=== PATIENT | male | born 1980 | race Caucasian/White ===

== ENCOUNTER 2021-07-14 10:25 | Outpatient (REF) | payer OTHER, SELFPAY ==
--- NOTE | ~2021-07-14 | XR_ITS ---
EXAMINATION: XR ELBOW, RIGHT CLINICAL INFORMATION: Pain. History of fall. COMPARISON: None TECHNIQUE: AP, lateral, and oblique views of the right elbow. FINDINGS: Bone alignment is normal. No definite fracture or dislocation is seen. There is a well-corticated smooth ossification that projects over the medial aspect of the radiohumeral joint questionable for an ossified intra-articular loose body. The joint spaces are otherwise normal. There is no joint effusion. XR/XR elbow RT 2V IMPRESSION: No acute fracture or joint effusion. Well-corticated ossification projecting over the medial aspect of the radial humeral joint questionable for ossified intra-articular loose body.
--- NOTE | ~2021-07-14 | XR_ITS ---
EXAMINATION: XR ANKLE, RIGHT CLINICAL INFORMATION: Pain. Fall. COMPARISON: None TECHNIQUE: AP, lateral, and mortise views of the right ankle. FINDINGS: Bone alignment is normal. No fracture or dislocation is seen. The ankle mortise is normal. There are small calcaneal spurs. Soft tissues are otherwise normal. XR/XR ankle RT min 3V IMPRESSION: No fracture or dislocation.
== END 2021-07-14 10:26 | disposition home or self-care (01) ==
LOC: HO.XRAY 10:25
PROVIDERS: PCP Nurse Practitioner Family; Visit Provider Emergency Medicine
DX: M25.521 Pain in right elbow (principal); M25.571 Pain in right ankle and joints of right foot; Z91.81 History of falling
CPT/HCPCS: 73070; 73610

== ENCOUNTER 2021-10-13 21:26 | Emergency (ER) | payer OTHER, SELFPAY ==
--- NOTE | ~2021-10-13 | XR_ITS ---
EXAMINATION: XR CHEST CLINICAL INFORMATION: Chest pain COMPARISON: None TECHNIQUE: 2 views of the chest were obtained. FINDINGS: Mild right basilar atelectasis or developing infiltrate. Mild cephalization of the vasculature Density in the right upper lung represent a small nodule. Measures 4 mm. The cardiac silhouette is within normal limits. XR/XR chest 2V IMPRESSION: Right basilar opacity may represent a mild area of atelectasis or possible infiltrate. Possible small right upper lobe nodule. [address] to fully evaluate if there are risk factors for lung malignancy
[2021-10-13 21:38] VITALS: BP 157/75; PULSE 83; RESP 20; TEMP 36.8; O2SAT 96; BMI 54.8
--- NOTE | 2021-10-13 22:04 | ED.URI ---
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 Patient does have history of admissions to the hospital but not in the last 10 years. No intubation history. No leg swelling, leg pain, shortness of breath, chest pain, fevers, chills Related Data Previous Rx's Medication Instructions Recorded azithromycin 250 mg tablet See Rx Instructions .ROUTE 10/13/21 .COMPLEX #6 tab benzonatate 200 mg capsule 200 mg PO TID PRN #10 cap 10/13/21 hydrocodone-homatropine 5 mg-1.5 5 ml PO Q4H PRN #30 ml 10/13/21 mg/5 mL (5 mL) oral syrup (Hycodan) prednisone 20 mg tablet 40 mg PO DAILY #10 tab 10/13/21 Allergies Allergy/AdvReac Type Severity Reaction Status Date / Time No Known Allergies Allergy Verified 10/13/21 21:38 [No Known Allergies*] Review of Systems Review of Systems: Yes all other systems are reviewed and are negative Constitutional: Constitutional: Reports no additional constitutional complaints, Denies body ache(s), Denies chills, Denies fever(s), Denies headache(s) and Denies weakness Eyes: Eyes: Reports no additional eye complaints and Denies change in vision ENT: Reports system reviewed and no additional complaints, except as documented, Denies dizziness, Denies headache(s), Reports nasal congestion, Denies nasal discharge, Denies neck pain and Reports sore throat Cardiovascular: Cardiovascular: Reports no additional cardiovascular complaints, Denies chest pain, Denies leg edema and Denies dyspnea Respiratory: Respiratory: Reports no additional respiratory complaints, Reports cough, Denies dyspnea and Reports wheezing Gastrointestinal: Gastrointestinal: Reports no additional gastrointestinal complaints, Denies abdominal pain, Denies diarrhea, Denies nausea and Denies vomiting Genitourinary: Genitourinary: Denies urinary incontinence Musculoskeletal: Musculoskeletal: Reports no additional musculoskeletal complaints, Denies back pain, Denies arthralgias, Denies joint swelling, Denies neck pain, Denies numbness and Denies tingling Integumentary/Breasts: Skin/Breast: Reports system reviewed and no additional complaints, except as docu and Denies rash Neurologic: Denies Abnormal speech present, Denies dizziness, Denies headache(s), Denies numbness, Denies tingling and Denies weakness Allergic/Immunologic: Allergic/Immunologic: Reports wheezing PMFSH Past Medical History Attestation statement: The following information was validated with the patient. Source: old records reviewed and nursing notes reviewed Medical History Asthma Social History Social History Advance Directives: No Advance Directives Information Provided: Yes Physical Exam Vital Signs: Vital Signs: Last Vital Signs Temp 98.3 F 10/13/21 21:38 Pulse 83 10/13/21 21:38 Resp 20 10/13/21 21:38 BP 157/75 H 10/13/21 21:38 Pulse Ox 96 10/13/21 21:38 BMI result Body Mass Index 54.8 Const: General: cooperative, healthy appearing, comfortable and no acute distress Orientation/consciousness: patient oriented x3 Limitations: no limitations HENMT: Head: Yes normal to inspection Ears: hearing grossly normal bilaterally and TM's normal bilaterally General nose exam: Normal external nose present Face and sinus: Yes normal facial exam Mouth: Normal oral and palatal mucosa present Throat: Yes posterior oropharynx normal, Yes tonsils normal and Yes uvula midline Eyes: General: appearance normal, both eyes and all related structures Pupils: Equal, round and reactive pupils present Neck: Neck: Yes normal visual inspection, Yes full ROM, Yes no lymphadenopathy and Yes no meningeal signs Chest: Chest palpation & inspection: normal inspection of the chest Resp: Effort & Inspection: normal respiratory effort Auscultation: clear to auscultation bilaterally Cardio: Rate: regular rate Rhythm: regular rhythm Peripheral pulses: Peripheral pulses 2+ throughout GI: Inspection: Yes normal to inspection Palpation (GI): Soft to palpation and nontender Auscultation: normal bowel sounds Back/Spine/Pelvis: Thoracic/Lumbar Spine: thoracic and lumbar spine normal to inspection Skin: General skin exam: no rashes or lesions noted Neuro: General: patient oriented x3, no meningeal signs, no focal motor deficits and normal sensation to monofilament Cranial nerves: Yes Equal, round and reactive pupils present Cognition (Neuro): normal cognition Speech: No Abnormal speech present Gait exam (Neuro): Normal gait present Motor exam (neuro): 5/5 motor strength present throughout Extrem: General: Yes normal to inspection, Yes no pedal edema and Yes no calf tenderness Course Course Course Narrative: 41-year-old male with history of asthma here with complaints of cough, wheezing, rhinorrhea for several days unrelieved with home albuterol nebulizer. On arrival the patient has stable saturations. His lung sounds are clear. Will check COVID screen, chest x-ray and reassess 2230- COVID screen negative. x-ray shows right lower lobe pneumonia. Patient has no hypoxia, no tachypnea, no fever and is speaking full sentences. Will discharge home with with course of antibiotics, prednisone burst and cough suppressant. Reviewed worrisome signs and symptoms of when to return to the emergency department. Comfortable discharge home. - Of note the patient had incidental finding of a right upper lobe nodule. I did discuss this with the patient and recommend he follow up with outpatient with his primary care doctor for a CT scan of the chest. MDM - URI/Sore Throat Medical Records Attestation: I reviewed the patient's medical records. Lab Data Attestation: I reviewed the patient's lab results. Labs: Lab Results 10/13/21 Range/Units 22:04 COVID-19 ([facility]) Negative (Negative) COVID-19 Clin Com See Note Imaging Data Chest x-ray: Attestation: I personally reviewed and interpreted this imaging study as follows: Radiologist's impression: IMPRESSION: Right basilar opacity may represent a mild area of atelectasis or possible infiltrate.? ? Possible small right upper lobe nodule. [address] to fully evaluate if there are risk factors for lung malignancy Discharge Plan Discharge Clinical Impression: Asthma, Pneumonia Patient Disposition: Home, Self-Care Instructions: Asthma (ED), Community Acquired Pneumonia (ED) Additional Instructions: your COVID test is negative. Chest x-ray shows pneumonia. It also shows a lung nodule. You need to follow up with your PCP for a CT scan of your chest to make sure this is not cancer. increase fluids, rest Alternate Motrin and Tylenol as needed for pain or fever Prescriptions: New azithromycin 250 mg tablet See Rx Instructions .ROUTE .COMPLEX Qty: 6 RF: 0 prednisone 20 mg tablet 40 mg PO DAILY Qty: 10 RF: 0 benzonatate 200 mg capsule 200 mg PO TID PRN (Reason: cough) Qty: 10 RF: 0 hydrocodone-homatropine [Hycodan] 5-1.5 mg/5 mL (5 mL) syrup 5 ml PO Q4H PRN (Reason: cough) Qty: 30 RF: 0 Referrals: Physician,Unknown J [Primary Care Provider] - 2 days Stand Alone Forms: Work/School Release Interventions: ED Discharge Assessment Last Done: 10/13/21 22:50 Discharge Date/Time: 10/13/21 22:53 Print Language: Surinamese
[2021-10-13 22:23] LABS: COVID-19 Test Negative (Negative)
== END 2021-10-13 22:53 | disposition home or self-care (01) ==
PROVIDERS: Nurse Practitioner Family; Emergency Provider Internal Medicine
DX: J18.9 Pneumonia, unspecified organism (principal); J45.909 Unspecified asthma, uncomplicated; Z79.899 Other long term (current) drug therapy; Z20.822 Contact with and (suspected) exposure to COVID-19
CPT/HCPCS: 36415; 71046; 87635; 99283

== ENCOUNTER 2022-06-13 | Outpatient (REF) | payer OTHER, SELFPAY ==
--- NOTE | ~2022-06-13 | CT_ITS ---
EXAMINATION: CT CHEST WITHOUT CONTRAST CLINICAL INFORMATION: Right solitary pulmonary nodule. COMPARISON: None TECHNIQUE: Multidetector volumetric CT imaging of the chest was done. Axial MIP volume rendering provided. Sagittal and coronal reformatted images were obtained. This CT examination was performed using dose optimization techniques as appropriate, variously including the following: *Automated exposure control *Adjustment of mA and/or kV according to patient size (this includes techniques or standardized protocols for targeted exams where dose is matched to indication/reason for exam; i.e. extremities or head) *Use of iterative reconstruction technique DLP: 438 mGy-cm FINDINGS: TEACHING AIDE: Hypoexpanded lungs. LUNGS: The lungs are well expanded and clear of acute pneumonic process. There is a 6 mm calcified nodule right upper lobe axial image 73/9. No additional calcified or noncalcified nodules visualized. There is no acute pneumonic process, ground-glass density or mass. MEDIASTINUM: The thyroid lobes are symmetric and normal. The central trachea and the bronchi are widely patent. The heart size is enlarged. The great vessels are normal caliber. There is no pericardial effusion. The central trachea and the bronchi are widely patent. The thyroid lobes are symmetrical and normal. No abnormal mediastinal or hilar lymphadenopathy seen. PLEURA: There is no pleural effusion or thickening. AXILLA: There is no abnormal axillary lymphadenopathy. The chest wall is unremarkable. UPPER ABDOMEN: The visualized liver, spleen and pancreas appear unremarkable. There is a 2.7 x 2.3 cm right adrenal fatty tumor measuring -56 Hounsfield units. The left adrenal gland appears unremarkable. OSSEOUS STRUCTURES: No aggressive lytic or sclerotic process seen. There is moderate ventral spondylosis mid and lower dorsal spine. CT/CT chest wo con IMPRESSION: 6 mm calcified nodule right upper lobe. No additional nodules seen. No abnormal mediastinal or axillary lymphadenopathy. Mild cardiomegaly. Fleischner guidelines were followed.
== END 2022-06-13 00:01 ==
LOC: HO.CT
PROVIDERS: Visit Provider Registered Nurse
DX: R91.1 Solitary pulmonary nodule (principal)
CPT/HCPCS: 71250

== ENCOUNTER 2023-06-29 08:33 | Outpatient (REF) | payer OTHER, SELFPAY ==
[2023-06-29 11:57] LABS: Estimated Average Glucose 103 mg/dL; Hemoglobin A1c % 5.2 % (<6.0)
[2023-06-29 12:22] LABS: Alanine Aminotransferase 27 U/L (0-40); Albumin Level 4.5 g/dL (3.5-5.0); Alkaline Phosphatase 44 U/L (39-117); Anion Gap 12 (12-20); Aspartate Amino Transferase 20 U/L (5-37); Bilirubin Total 0.6 mg/dL (0.0-1.0); Blood Urea Nitrogen 22 mg/dL (9-16); Calcium 9.7 mg/dL (8.4-10.2); Carbon Dioxide 26 mmol/L (22-29); Chloride 106 mmol/L (96-108); Cholesterol 165 mg/dL (<200); Estimated Glomerular Filt Rate > 60; Glucose Random 88 mg/dL (60-115); HDL Cholesterol 36 mg/dL (>40); LDL Cholesterol Calculated 110 mg/dL (<100); Potassium 4.7 mmol/L (3.3-5.1); Sodium 139 mmol/L (135-145); Total Protein 7.9 g/dL (6.5-8.0); Triglycerides 99 mg/dL (<150)
[2023-06-29 12:25] LABS: TSH reflex Free T4 2.12 uIU/mL (0.32-4.0)
== END 2023-06-29 08:34 | disposition home or self-care (01) ==
LOC: HO.HHCL 08:33
PROVIDERS: Visit Provider Registered Nurse
DX: I10 Essential (primary) hypertension (principal); E66.01 Morbid (severe) obesity due to excess calories; R00.2 Palpitations; Z68.43 Body mass index [BMI] 50.0-59.9, adult
CPT/HCPCS: 36415; 80053; 80061; 83036; 84443

== ENCOUNTER → 2023-07-26 14:45 | Outpatient (REF) | payer OTHER, SELFPAY | LOC: HO.SL 14:45 | PROVIDERS: PCP Nurse Practitioner Family; Visit Provider Registered Nurse | DX: G47.19 Other hypersomnia (principal); R06.83 Snoring | CPT/HCPCS: 95806 ==

== ENCOUNTER → 2023-07-26 19:00 | Outpatient (BNV) | payer OTHER, SELFPAY | PROVIDERS: PCP Nurse Practitioner Family; Visit Provider Internal Medicine | DX: R06.83 Snoring (principal) | CPT/HCPCS: 95806 ==

== ENCOUNTER 2023-08-22 05:44 | Emergency (ER) | payer OTHER, SELFPAY ==
--- NOTE | ~2023-08-22 | XR_ITS ---
EXAMINATION: XR CHEST CLINICAL INFORMATION: Cough COMPARISON: 06/13/2022 TECHNIQUE: 2 views of the chest were obtained. FINDINGS: Lung volumes are symmetric. No focal consolidation is seen. No evidence of pneumothorax, pleural effusion, or pulmonary edema. The cardiomediastinal contour is unremarkable. No acute osseous findings are seen. XR/XR chest 2V IMPRESSION: No acute cardiopulmonary findings.
[2023-08-22 05:53] VITALS: BP 137/87; PULSE 81; RESP 18; O2SAT 97; BMI 52.1
[2023-08-22 06:15] VITALS: PULSE 71; RESP 16; O2SAT 97
[2023-08-22] MEDS: Albuterol/Iprat 2.5/0.5MG 3 ML AMPUL.NEB INHALE (06:15)
--- NOTE | 2023-08-22 06:26 | ECG_ITS ---
Test Reason : SOB Blood Pressure : / mmHG Vent. Rate : 075 BPM Atrial Rate : 075 BPM P-R Int : 184 ms QRS Dur : 090 ms QT Int : 362 ms P-R-T Axes : 040 019 -10 degrees QTc Int : 404 ms Normal sinus rhythm Normal ECG No previous ECGs available Referred By: Rosa Maria Scott Electronically Signed By:ANA KNOTT MD
--- NOTE | 2023-08-22 06:32 | ED_ITS ---
HPI - URI/Sore Throat General Chief Complaint: Upper Respiratory Symptoms Stated Complaint: Asthma Time Seen by Provider: 08/22/23 06:31 Source: patient, RN notes reviewed and old records reviewed Mode of arrival: ambulatory History of Present Illness HPI Narrative: 43-year-old male with a past medical history of asthma presenting to the ED complaining of productive cough, rhinorrhea/congestion, SOB, and chest discomfort when coughing x3 days. Admits using nebulizer at with some relief. Denies fever/chills, pedal edema, calf pain, sick contacts, recent travel or recent steroid use MD elicited complaint: cough and rhinorrhea Related Data Previous Rx's Medication Instructions Recorded azithromycin 250 mg tablet See Rx Instructions PO .COMPLEX #6 10/13/21 tabs benzonatate 200 mg capsule 200 mg PO TID PRN cough #10 caps 10/13/21 hydrocodone-homatropine 5 mg-1.5 5 ml PO Q4H PRN cough #30 mL 10/13/21 mg/5 mL (5 mL) oral syrup (Hycodan) prednisone 20 mg tablet 40 mg (2 x 20 mg) PO DAILY #10 tabs 10/13/21 prednisone 20 mg tablet 40 mg (2 x 20 mg) PO DAILY 4 days 08/22/23 #8 tabs Allergies Allergy/AdvReac Type Severity Reaction Status Date / Time No Known Allergies Allergy Verified 10/13/21 21:38 [No Known Allergies*] Review of Systems Review of Systems: Constitutional: No Fever, No Chills ENT/Mouth: No Ear Pain, + Nasal Congestion, No sore throat, No Rhinorrhea, No Swallowing Difficulty Cardiovascular: +Chest Pain w/cough, + SOB Respiratory: + Cough, No Sputum, No Wheezing Gastrointestinal: No Nausea, No Vomiting, No Diarrhea, No Constipation, No Abdominal pain Musculoskeletal: No joint pain, No Myalgias, No Joint Swelling Skin: No Skin Lesions, No rash Neuro: No Weakness Yes all other systems are reviewed and are negative Constitutional: Constitutional: Reports as per [facility] Past Medical History Attestation statement: The following information was validated with the patient. Source: old records reviewed Medical History Asthma Surgical History No history of previous surgery Family History Family History Other No known problems Social History Social History Household Members: Unknown / Unable to assess Alcohol intake: unknown Patient Tobacco Use Status: Tobacco use Unknown Advance Directives: No Advance Directives Information Provided: Yes Physical Exam Vital Signs: Vital Signs: Last Vital Signs Pulse 71 08/22/23 07:22 Resp 16 08/22/23 07:22 BP 137/87 08/22/23 05:53 Pulse Ox 97 08/22/23 05:53 O2 Del Method Room Air 08/22/23 05:53 BMI result Body Mass Index 52.1 Const: General: cooperative, healthy appearing and no acute distress Orientation/consciousness: patient oriented x3 Limitations: no limitations HEENT: Head: Yes normal to inspection and Yes atraumatic Ears: hearing grossly normal bilaterally General nose exam: Normal external nose present Face and sinus: Yes normal facial exam Eyes: General: appearance normal, both eyes and all related structures EOM: EOMs intact bilaterally Neck: Neck: Yes normal visual inspection and Yes no meningeal signs Resp: Effort & Inspection: normal respiratory effort, not labored and no respiratory distress Auscultation: clear to auscultation bilaterally, no crackles and no wheezes Cardio: Rate: regular rate Heart sounds: S1 normal heart sound present and S2 normal heart sound present Skin: Rashes: no rashes Wounds: no wounds Neuro: General: patient oriented x3, tone normal and no meningeal signs Cranial nerves: Yes CN's II-XII intact bilaterally Gait exam (Neuro): Normal gait present Extrem: General: Yes normal to inspection, Yes no pedal edema and Yes no calf tenderness Course Course Course Narrative: XR chest 2V IMPRESSION: No acute cardiopulmonary findings. -0800--COVID-19 positive -0808--influenza negative Results discussed with patient including worrisome signs and symptoms and strict return precautions, and when to return to the emergency department. They verbalized understanding and feel safe for discharge at this time. Medications Administered Discontinued Medications Generic Name Dose Route Start Last Admin Trade Name Freq PRN Reason Stop Dose Admin Albuterol Sulfate 4 puff 08/22/23 06:54 08/22/23 07:20 Albuterol Sulfate 90 Mcg 8 Gm Inhaler INHALE 08/22/23 06:55 4 puff ONCE ONE Administration Albuterol/Ipratropium 3 ml 08/22/23 06:14 08/22/23 06:15 Albuterol/Iprat 2.5/0.5mg 3 Ml Ampul.Neb INHALE 08/22/23 06:15 3 ml ONCE ONE Administration Prednisone 60 mg 08/22/23 06:02 08/22/23 06:47 Prednisone 20 Mg Tablet PO 08/22/23 06:03 60 mg ONCE ONE Administration Medical Decision Making Medical Decision Making MDM Narrative: 43-year-old male with a past medical history of asthma presenting to the ED complaining of productive cough, rhinorrhea/congestion, SOB, and chest discomfort when coughing x3 days. On exam vital signs stable, NAD, nontoxic appearing, lungs CTA, no appreciable pedal edema or calf tenderness. Concern for asthma exacerbation versus viral illness/bronchitis or pneumonia. Lower suspicion for ACS/PE or dissection Plan: EKG, COVID/flu testing, CXR, DuoNeb, p.o. prednisone, re-evaluate, anticipated discharge. Please refer to course for remaining clinical decision making, interpretation of labs/imaging results, and discussions with consultants and/or family members. Differential Diagnosis Differential Diagnoses: The differential diagnosis associated with the presentation includes As above Admission/Observation Consideration of admission/observation: Escalation of care including admission/observation considered Lab Data MDM Lab Attestation statement: I reviewed the patient's lab results. Labs: Lab Results 08/22/23 Range/Units 07:44 COVID-19 ([facility]) Positive A (Negative) COVID-19 Clin Com See Note Influenza Type A ([facility]) Negative (Negative) Influenza Type B ([facility]) Negative (Negative) Influenza A & B Note See Note Independent Interpretation I performed an independent interpretation of an: EKG (My interpretation EKG is normal sinus rhythm rate of 75. QRS 90. QTC 404. No STEMI.) and Plain X-Ray Radiology Impression Discussion of test interpretation with radiology: I have reviewed the radiologist's reading. Independent Historian Clinical information obtained from an independent historian. History obtained from or confirmed by: Spouse External Record Review External record reviewed: Inpatient record, Office record, Outpatient record, Prior outpatient labs, Prior outpatient radiology, Primary care record and Outside ED record Tests considered The following testing was considered but not selected: As above Chronic Conditions Patient?s care impacted by: Other (asthma) Discharge Plan Discharge Clinical Impression: Asthma, COVID-19 Patient Disposition: Home, Self-Care Instructions: Asthma (DC), COVID-19 (Coronavirus Disease 2019) (ED) Additional Instructions: Your x-ray is unremarkable. You have COVID-19. At this time you will be okay for discharge. Please self isolate for 5 days. Do not expose yourself to others. You may not go to work or school. Please continue to follow cold instructions and wash your hands frequently. You may take Tylenol / Motrin as directed on the bottle for pain or fever. If you have constant or persistent shortness of breath, fever unresolved with medications, chest pain, or your unable to eat or drink please return to the ED CDC Guidelines for home isolation: - Stay away from others - WEAR A MASK if you are sick AND STAY HOME - Cover your mouth and nose with a tissue when you cough or sneeze. Dispose of tissues in a lined trash can and wash your hands immediately with soap and water for at least 20 seconds. If soap and water are not available, clean hands with alcohol-based hand test eng that contains at least 60% alcohol. - Clean your hands often with soap and water for at least 20 seconds - Avoid touching your eyes, nose and mouth with unwashed hands - Do not share dishes, drinking glasses, cups, eating utensils, towels, or bedding with other people in your home. After using these items, wash them thoroughly with soap and water or put in the stencil printer. - Clean high-touch surfaces in your isolation area ( sick room and bathroom) every day; let a caregiver clean and disinfect high-touch surfaces in other areas of the home. Clean the area or item with soap and water or another detergent if it is dirty. Then, use a household disinfectant. - Limit contact with pets and animals: If you must care for a pet, wash your hands before and after interacting with them) Jones radiograf?a no tiene nada especial. Tienes COVID-19. En nina momento usted estar? wally para recibir el indira. Por favor, a?slese laurel 5 d?as. No te expongas a los dem?s. No puede ir al trabajo ni a la escuela. Contin?e siguiendo las instrucciones fr?as y l?vese las pelon con frecuencia. Puede katie Tylenol/Motrin olive se indica en el frasco para el dolor o la fiebre. Si tiene dificultad para respirar lilian o persistente, fiebre que no se resuelve con medicamentos, dolor en el pecho o no puede comer ni beber, regrese al servicio de urgencias. Pautas de los CDC para el aislamiento en el hogar: - Mant?ngase alejado de los dem?s - [place] si est?s enfermo Y QU?DATE EN CASA - Cubrirse la boca y la nariz con un pa?uelo desechable al toser o estornudar. Deseche los pa?uelos en un bote de basura forrado y l?vese las pelon inmediatamente con agua y jab?n laurel al menos 20 segundos. Si no hay agua y jab?n disponibles, l?vese las peoln con un desinfectante para pelon a base de alcohol que contenga al menos un 60 % de alcohol. - L?vate las pelon frecuentemente con agua y jab?n laurel al menos 20 segundos. - Evite tocarse los ojos, la nariz y la boca con las pelon sucias. - No comparta platos, vasos, tazas, utensilios para comer, toallas o ropa de cama con otras personas en ojnes hogar. Despu?s de usar estos art?culos, l?velos minuciosamente con agua y jab?n o p?ngalos en el lavavajillas. - Limpiar las superficies de alto contacto en jones ?poppy de aislamiento ( cuarto de enfermo y ba?o) todos los d?as; Deje que un cuidador limpie y desinfecte las superficies de alto contacto en otras ?reas del hogar. Limpie el ?poppy o art?culo con agua y jab?n u otro detergente si est? sucio. Luego, use un desinfectante dom?stico. - Limitar el contacto con mascotas y animales: Si debes cuidar mehdi mascota, l?vate las pelon antes y despu?s de interactuar con laxmi) Prescriptions: New prednisone 20 mg tablet 40 mg PO DAILY 4 Days Qty: 8 0RF No Action azithromycin 250 mg tablet See Rx Instructions .ROUTE .COMPLEX Qty: 6 0RF Rx Instructions: For 250 mg dose pack: take 500 mg today (day 1), then 250 mg for 4 days (days 2-5) prednisone 20 mg tablet 40 mg PO DAILY Qty: 10 0RF benzonatate 200 mg capsule 200 mg PO TID PRN (Reason: cough) Qty: 10 0RF hydrocodone-homatropine [Hycodan] 5-1.5 mg/5 mL (5 mL) syrup 5 ml PO Q4H PRN (Reason: cough) Qty: 30 0RF Referrals: Physician,Unknown J [Primary Care Provider] - 3 days Print Language: Grenadian
[2023-08-22] MEDS: predniSONE 20 MG TABLET 60 MG PO (06:47)
[2023-08-22] MEDS: Albuterol Sulfate 90 MCG 8 GM INHALER 4 PUFF INHALE (07:20)
[2023-08-22 07:22] VITALS: PULSE 71; RESP 16; O2SAT 97
[2023-08-22 07:57] LABS: IDNOW Serial# BCCEAD1C
[2023-08-22 07:58] LABS: COVID-19 Test Positive (Negative)
[2023-08-22 08:05] LABS: IDNOW Serial# 08D9AD1C; Influenza A Negative (Negative); Influenza B2 Negative (Negative)
[2023-08-22 08:30] VITALS: PULSE 76; RESP 17
== END 2023-08-22 08:33 | disposition home or self-care (01) ==
PROVIDERS: Emergency Medicine; Emergency Provider Emergency Medicine Emergency Medical Services
DX: U07.1 COVID-19 (principal)
CPT/HCPCS: 71046; 87502; 87635; 93005; 94640; 99284; 99285

== ENCOUNTER 2023-09-06 10:40 | Outpatient (AMB) | payer OTHER, SELFPAY ==
[2023-09-06 10:44] VITALS: BP 126/74; PULSE 64; BMI 52.4
--- NOTE | 2023-09-06 10:44 | MHC.OFFVIS ---
Intake Vital Signs 09/06/23 10:44 Height 5 ft 9 in Weight 354 lb 15.108 oz BMI 52.4 BP 126/74 Blood Pressure Location Lt brachial Position Sitting Pulse 64 Intake Visit Reasons: NPV/Palpitations/HTN/Abnormal ECG/HHC/F. Brittney Intake Note: NPV Hydraulic Miner Required: Yes Hydraulic Miner Language: Glass Loading Equipment Tender Name: Leyla [id number] Accompanied by: Self / Same As Patient Allergies No Known Allergies [No Known Allergies*] Allergy (Verified 09/06/23 10:46) Medication List - Last Reconciled 09/06/23 by Frankie Baez MD benzonatate 200 mg PO TID PRN olmesartan 20 mg PO DAILY HPI HPI Comments History of Present Illness Details Mehdi has been referred for cardiac evaluation. Note from primary care physician states heart racing symptoms, but patient states he does not have any such sensation. According to him, he does get short of breath with activity. It started about an year or so ago after got diagnosed with COVID and has been progressive since that time. He also carries a diagnosis of asthma. He is markedly overweight. Otherwise, no clear anginal-type chest pains. No known cardiac issues like coronary disease or myocardial infarction or cardiomyopathy. Per history, patient's brother in his 30s from cardiac issues but unknown details. [facility] Medical History (Updated 09/06/23 @ 10:53 by Frankie Baez MD) Morbid obesity Asthma Surgical History No history of previous surgery Family History Other No known problems Social History Household Members: Unknown / Unable to assess Alcohol intake: unknown Patient Tobacco Use Status: Tobacco use Unknown Review of Systems Const Denies chills, Denies daytime sleepiness, Denies fatigue, Denies fever(s), Denies frequent falls, Denies night sweats, Denies snoring, Denies weakness, Denies weight gain and Denies weight loss Eyes Denies loss of vision ENT Denies dizziness and Denies hearing loss Card Denies chest pain, Denies chest pain with activity, Denies syncope, Denies rapid heart rate, Denies edema, Denies claudication, Denies leg edema, Denies lightheadedness, Denies palpitations, Denies dyspnea, Denies dyspnea on exertion and Denies orthopnea Resp Denies cough, Denies excessive phlegm production, Denies dyspnea, Denies dyspnea on exertion, Denies snoring and Denies wheezing GI Denies abdominal pain, Denies hematochezia, Denies change in bowel habits, Denies change in stool character, Denies heartburn, Denies nausea and Denies vomiting Denies hematuria, Denies dysuria and Denies urinary frequency Musc Denies arthralgias, Denies muscle weakness, Denies numbness and Denies tingling Skin/Breast Denies nail changes and Denies rash Neuro Denies Abnormal speech present, Denies dizziness, Denies syncope, Denies frequent falls, Denies loss of vision, Denies memory loss, Denies numbness, Denies tingling and Denies weakness Psych Denies depression and Denies memory loss Endo Denies fatigue and Denies palpitations Aller/Immun Denies wheezing Physical Exam Vital Signs: Last Vital Signs Pulse 64 09/06/23 10:44 BP 126/74 09/06/23 10:44 BMI result Body Mass Index 52.4 Const General: comfortable and no acute distress Orientation/consciousness: patient oriented x3 HEENT Other: Unremarkable Head: Yes normal to inspection Neck Neck: Yes normal visual inspection Chest Chest palpation & inspection: normal inspection of the chest Resp Auscultation: clear to auscultation bilaterally Cardio Palpation: normal PMI Heart sounds: S1 normal heart sound present, S2 normal heart sound present, no gallops, no murmurs and no rubs GI Palpation (GI): Soft to palpation Back/Spine/Pelvis Other: unremarkable Skin General skin exam: no rashes or lesions noted Neuro General: patient oriented x3 Speech: No Abnormal speech present Extrem General: Yes normal to inspection Psych Mental Status: mental status grossly normal Assessment & Plan Assessment & Plan (1) Shortness of breath: Code(s): R06.02 - Shortness of breath (2) Morbid obesity: Code(s): E66.01 - Morbid (severe) obesity due to excess calories Plan In the recent EKG, underlying rhythm is sinus at 75/Min; no significant ST-T changes and otherwise unremarkable. Normal [place] and corrected QT. Overall, morbid obesity, shortness of breath with activity, family history of myocardial infarction in brother in his 30s with . Will start with an echocardiogram and stress myocardial perfusion imaging study. If there is issue with image quality due to weight, then consider coronary CTA. Follow-up after testing. Orders: Orders CA echo transthoracic complete Today R06.02 - Shortness of breath CA stress test Today R06.02 - Shortness of breath NM cardiolite stress test Today R06.02 - Shortness of breath, R07.2 - Precordial pain Medications: Changed From benzonatate 200 mg PO TID PRN 10 caps 0RF cough To benzonatate 200 mg PO TID PRN cough Coding Level of Care Code New Pt Level 4 (18148) Diagnoses Shortness of breath R06.02 Morbid obesity E66.01
== END 2023-09-06 11:08 | disposition home or self-care (01) ==
PROVIDERS: PCP Nurse Practitioner Family; Visit Provider Internal Medicine
DX: R06.02 Shortness of breath (principal); E66.01 Morbid (severe) obesity due to excess calories
CPT/HCPCS: 99204

== ENCOUNTER → 2023-09-06 10:40 | Outpatient (BNVA) | payer OTHER, SELFPAY | PROVIDERS: PCP Nurse Practitioner Family; Visit Provider Internal Medicine ==

== ENCOUNTER 2025-01-28 05:59 | Outpatient (REF) | payer OTHER, SELFPAY ==
--- OUTSIDE RECORDS SUMMARY | 2025-01-28 06:02 | XMS_ITS | Encounter Summary ---
Author Organization [employer] Address [address] [facility] 7[address] [place] [address] Care Team Providers Care Supervisor International Reservations Name Role Phone Bernice Lugo [facility] Primary Care Provider [phone] Reason for Visit * Reason Onset Date Comments Med Refill 03/22/2023 Encounter Details Date Type Department Care Team ([facility] st Contact Info) Description 03/22/2023 Telephone [facility] [address] [place] [address] Bernice Lugo [facility] [address] [place] [address] Med Refill Social History Tobacco Use Types Packs/Day Years Used Date Smoking Tobacco: Never Assessed Sex and Gender Information Value Date Recorded Sex Assigned at Male 09/05/2022 10:34 AM EDT Legal Sex Male 10:34 AM EDT Gender Identity Choose not to disclose 10:34 AM EDT Sexual Orientation Choose not to disclose 2021 10:34 AM EDT documented as of this encounter Miscellaneous Notes * Telephone Encounter - Adela Cifuentes LPN - 03/22/2023 11:22 AM EDT Duplicate pended to PCP. * Telephone Encounter - Kira Zepeda - 03/22/2023 9:14 AM EDT Tc from patient requesting a med refill on medication allopurinol [address] Lugo documented in this encounter Plan of Treatment Upcoming Encounters Date Type Department Care Team (Late st Contact Info) Description 03/24/2025 2:00 PM EDT Office Visit [facility] [address] [place] [address] Bernice Lugo FNP [address] [place] [address] documented as of this encounter Visit Diagnoses Not on filedocumented in this encounter Care Teams Supervisor International Reservations Relationship Specialty Start Date End Date Bernice Lugo FNP [address] [place] [address] PCP - General Family Medicine 04/19/22 documented as of this encounter
--- OUTSIDE RECORDS SUMMARY | 2025-01-28 06:02 | XMS_ITS | Encounter Summary ---
Author Organization [employer] Address [address] [facility] [address] [place] [address] Care Team Providers Care Naturopath Name Role Phone Bernice Lugo Primary Care Provider [phone] Reason for Referral * Imaging (Routine) - Authorized Specialty Diagnoses / Procedures Referred By Miguel Angel jonas Referred To Contact Radiology Diagnoses Adrenal incidentaloma (CMS/HCC) Procedures CT adrenal wo/w IV con Bernice Lugo [employer] [address] [place] [address] Phone: tel: fax: [address] Phone: tel: fax: Referral ID Status Reason Start Date Expiration Date V isits Requested Visits Authorized [id number] Authorized 01/05/2025 01/05/2026 1 1 * Imaging (Routine) - Authorized Specialty Diagnoses / Procedures Referred By Miguel Angel jonas Referred To Contact Radiology Diagnoses Lung nodule, solitary Procedures CT Chest w/o Contrast Bernice Lugo FNP [address] [place] [address] Phone: tel: fax: [address] Phone: tel: fax: Referral ID Status Reason Start Date Expiration Date V isits Requested Visits Authorized [id number] Authorized 01/05/2025 01/05/2026 1 1 Reason for Visit * Reason Comments Follow-up Encounter Details Date Type Department Care Team (Latest Contact Info) Description 01/03/2025 2:30 PM EST Office Visit [facility] [address] [place], [place] [id number] Bernice Lugo [employer] [address] [place] [address] Essential hypertension (Primary Dx); Acute idiopathic gout of left foot; Lung nodule, solitary; Adrenal incidentaloma (CMS/HCC); Class 3 severe obesity due to excess calories with serious comorbidity and body mass index (BMI) of 50.0 to 59.9 in adult (CMS/HCC); Dietary counseling; Exercise counseling; Family history of prostate cancer Social History Tobacco Use Types Packs/Day Years Used Date Smoking Tobacco: Never Smokeless Tobacco: Never Tobacco Cessation:Counseling Given: Not Answered Alcohol Use Standard Drinks/Week Comments Never 0 (1 standard drink = 0.6 oz pur e alcohol) Depression Answer Date Recorded Patient Health Questionnaire-9 Score 0 01/03/2025 Patient Health Questionnaire-9 Score 0 01/03/2025 Last PHQ-9: Questionnaire Data Not on file 0 01/03/2025 Housing Stability Answer Date Recorded What is your housing situation today? I have rosy antoine 01/03/[address] you li ve. Do you have problems with any of the following? None of the above 01/03/2025 Food Insecurity Answer Date Recorded Within the past 12 months, y ou worried that your food would run out before you got money to buy more: Never True 01/03/2025 Within the past 12 months,th e food you bought just didn't last and you didn't have enough money to get more: Never True Transportation Answer Date Recorded In the past 12 months, has l ack of transportation kept you from medical appts, meetings, work or from getting things needed for daily living? No 01/03/2025 Utilities Answer Date Recorded In the past 12 months, has t he electric, gas, oil or water company threatened to shut off services in your home? No 01/03/2025 Depression Answer Date Recorded Patient Health Questionnaire-2 Score 0 01/03/2025 Internet Access Answer Date Recorded Internet Access Q1 Yes 01/03/2025 Internet Access Q2 Not on file 01/03/2025 Sex and Gender Information Value Date Recorded Sex Assigned at Male 09/05/2022 10:34 AM EDT Legal Sex Male 10:34 AM EDT Gender Identity Choose not to disclose 10:34 AM EDT Sexual Orientation Choose not to disclose 2021 10:34 AM EDT documented as of this encounter Last Filed Vital Signs Vital Sign Reading Time Taken Comments Blood Pressure 140/90 01/03/2025 3:01 PM EST Pulse 77 01/03/2025 2:35 PM EST Temperature 36.2 ??C (97.2 ??F) 01/03/2025 2:35 PM ES T Respiratory Rate 20 01/03/2025 2:35 PM EST Oxygen Saturation 98% 01/03/2025 2:35 PM EST Inhaled Oxygen Concentration - - Weight 162 kg (357 lb 6.4 oz) 01/03/2025 2:35 PM EST Height 175.3 cm (5' 9 ) 01/03/2025 2:35 PM EST Body Mass Index 52.78 01/03/2025 2:35 PM EST documented in this encounter Progress Notes * [facility], [employer] - 01/03/2025 2:30 PM EST SUBJECTIVE: Mehdi Vicente is a 45 y.o. year old adult with HTN, HLD, gout, who presents for chronic disease management and to reestablish care. Last PCP visit 2022. Acute Concerns: Gout flare x 1 day left ankle. No longer taking allopurinol. Requesting indomethacin which was previously effective. Interval History HTN-stopped BP medications x 6 months (ran out); amlodipine; olmesartan. Pt denies CP/SOB/headache/blurred vision Brother from prostate cancer, patient requesting early screening Social History Social History Narrative Tobacco Use: None ETOH: None Marijuana Use: None Other substance use: None Current living environment: Children: 2 adult children (daughter in [place]) Employment/education: Works at [employer] Sexually active: yes Partners are: AFAB Patient Active Problem List Diagnosis Articular gout Dyslipidemia Essential hypertension Lung nodule Vitamin D deficiency Class 3 severe obesity due to excess calories with serious comorbidity and body mass index (BMI) of50.0 to 59.9 in adult ([facility]) No past surgical history on file. Family History Problem Relation Name Age of Onset Prostate cancer Brother Heart attack Brother Review of Systems Constitutional: Negative for activity change, diaphoresis, fatigue, fever and unexpected weight change. Eyes: Negative for visual disturbance. Respiratory: Negative for apnea, cough, chest tightness and shortness of breath. Cardiovascular: Negative for chest pain, palpitations and leg swelling. Gastrointestinal: Negative for abdominal pain and nausea. Musculoskeletal: Positive for arthralgias. Neurological: Negative for dizziness, syncope, light-headedness and headaches. OBJECTIVE: Vitals: 01/03/25 1435 BP: (!) 158/90 Pulse: 77 Resp: 20 Temp: 97.2 ??F (36.2 ??C) SpO2: 98% Physical Exam Constitutional: Appearance: Normal appearance. HENT: Head: Normocephalic. Right Ear: External ear normal. Left Ear: External ear normal. Nose: Nose normal. Eyes: Conjunctiva/sclera: Conjunctivae normal. Cardiovascular: Rate and Rhythm: Normal rate and regular rhythm. Heart sounds: Normal heart sounds. Pulmonary: Effort: Pulmonary effort is normal. Breath sounds: Normal breath sounds. Musculoskeletal: Right lower leg: No edema. Left lower leg: No edema. Right ankle: Normal. Left ankle: Swelling present. Tenderness present over the lateral malleolus. No medial malleolus tenderness. Skin: General: Skin is warm and dry. Capillary Refill: Capillary refill takes less than 2 seconds. Neurological: General: No focal deficit present. Mental Status: Mehdi is alert and oriented to person, place, and time. Psychiatric: Mood and Affect: Mood normal. Behavior: Behavior normal. ASSESSMENT/PLAN HTN -Restart olmesartan 20 mg daily -Update labs -Negative sleep study 2021 - Reviewed ED precautions to include chest pain, shortness of breath, severe headache, sudden vision changes or BP >=180/>=120 mmHg. Contact HC if three or more BP readings >140/90. - Encouraged regular aerobic exercise within initial goal of 30 minute walk 3x/week - Encouraged balanced diet with a variety of fruits, vegetables, and lean meats. Gout -Acute flare, left ankle over lateral malleolus -Start indomethacin 50 mg twice daily which has previously been effective for patient's flares - Check uric acid levels once flare subsides with plan to restart allopurinol -Will obtain x-ray of affected joint Lung Nodule - Incidental finding of lung nodule on x-ray - Had follow-up chest CT 06/2022 which showed a 6 mm solid nodule in right upper lobe. No follow-upsince -Will obtain follow-up chest CT per Fleischner guidelines Adrenal Mass -Incidental finding on [address] of 2.7 x 2.3 cm right adrenal fatty tumor measuring -56 Hounsfield units -Will obtain adrenal imaging to follow-up, pending results consider endocrinology referral. Diagnosis Plan 1. Essential hypertension olmesartan (Benicar) 20 MG tablet Comprehensive Metabolic Panel Lipid Panel, Standard Comprehensive Metabolic Panel Lipid Panel, Standard 2. Acute idiopathic gout of left foot indomethacin (Indocin) 50 MG capsule XR Ankle 3+ Views Left XR Ankle 3+ Views Left 3. Lung nodule, solitary CT Chest w/o Contrast CT Chest w/o Contrast 4. Adrenal incidentaloma (CMS/HCC) CT adrenal wo/w IV con CT adrenal wo/w IV con 5. Class 3 severe obesity due to excess calories with serious comorbidity and body mass index (BMI)of 50.0 to 59.9 in adult (CMS/HCC) Hemoglobin A1c Hemoglobin A1c 6. Dietary counseling 7. Exercise counseling Follow Up: 3 months, PE; sooner pending lab results Current Outpatient Medications on File Prior to Visit Medication Sig Dispense Refill albuterol 108 (90 Base) MCG/ACT inhaler Inhale 2 puffs every 4 (four) hours. allopurinol (Zyloprim) 300 MG tablet take 1 tablet by oral route every day. Take with 100 mg pill (total of 400 mg) amLODIPine (Norvasc) 5 MG tablet Take 1 tablet (5 mg) by mouth in the morning. 30 tablet 11 indomethacin (Indocin) 50 MG capsule TAKE 1 CAPSULE BY MOUTH TWICE DAILY NEEDED FOR GOUT 28 capsule 1 olmesartan (BENIcar) 20 MG tablet TAKE 1 TABLET BY MOUTH EVERY DAY 90 tablet 0 No current facility-administered medications on file prior to visit. Georgian Translation: Provided by [facility] staff member JENA Brewster documented in this encounter Plan of Treatment Upcoming Encounters Date Type Department Care Team (Late st Contact Info) Description 03/24/2025 2:00 PM EDT Office Visit [facility] [address] [place] [address] Bernice Lugo FNP [address] [place] [address] Scheduled Orders Name Type Priority Associated Diagnoses Orde r Schedule XR Ankle 3+ Views Left Imaging Routine Acute idiopathic gout of left foot Expected: 01/03/2025, Expires: 01/03/2026 CT Chest w/o Contrast Imaging Routine Lung nodule, solitary Expected: 01/05/2025, Expires: 01/05/2026 CT adrenal wo/w IV con Imaging Routine Adrenal incidentaloma (CMS/HCC) Expected: 01/05/2025, Expires: 01/05/2026 Comprehensive Metabolic Panel Lab Routine Essential hypertension Expected: 01/05/2025 (Approximate), Expires: 01/05/2026 Lipid Panel, Standard Lab Routine Essential hypertension Expected: 01/05/2025 (Approximate), Expires: 01/05/2026 Hemoglobin A1c Lab Routine Class 3 severe obesity due to excess calories with serious comorbidity and body mass index (BMI) of 50.0 to 59.9 in adult (CMS/HCC) Expected: 01/05/2025 (Approximate), Expires: 01/05/2026 PSA,Total Lab Routine Family history of prostate cancer Expected: 01/05/2025, Expires: 01/05/2026 documented as of this encounter Visit Diagnoses Diagnosis Essential hypertension- Primary Unspecified essential hypertension Acute idiopathic gout of left foot Lung nodule, solitary Adrenal incidentaloma (CMS/HCC) Class 3 severe obesity due to excess calories with serious comorbidity and body mass index (BMI) of 50.0 to 59.9 in adult (CMS/HCC) Dietary counseling Dietary surveillance and counseling Exercise counseling Family history of prostate cancer Family history of malignant neoplasm of prostate documented in this encounter Additional Health Concerns Assessment Noted Time PHQ-9 Depression Total Score: 0 01/03/20 25 2:41 PM EST documented as of this encounter Care Teams Naturopath Relationship Specialty Start Date End Date Bernice Lugo [employer] [address] [place] [address] PCP - General Family Medicine 04/19/22 documented as of this encounter
--- OUTSIDE RECORDS SUMMARY | 2025-01-28 06:02 | XMS_ITS | Encounter Summary ---
Author Organization [employer] Address [address] [facility] [address] [place] [address] Care Team Providers Care Director Mobile Name Role Phone Bernice Lugo [facility] Primary Care Provider [phone] Reason for Visit * Reason Onset Date Comments Care Coordination 01/07/2025 Encounter Details Date Type Department Care Team ([facility] st Contact Info) Description 01/07/2025 Telephone [facility] [address] [place] [address] [facility] [address] [place] [address] Care Coordination Social History Tobacco Use Types Packs/Day Years Used Date Smoking Tobacco: Never Smokeless Tobacco: Never Alcohol Use Standard Drinks/Week Comments Never 0 [...] encounter Miscellaneous Notes * Telephone Encounter - Iza Greenwood RN - 01/07/2025 10:40 AM EST Incoming call from patient. Patient informed of below message and is aware he will receive a call for scheduling of the CT scans. Patient is also inquiring on the status of indocin and olmesartan medication. Patient advised they were both sent to the pharmacy on 01/03/25. RN placed patient on hold and spoke to the pharmacy who reports the patient p/u the indocin on 01/03/25 and the olmesartan was placed on hold however they can fill it for this PM for p/u. Patient informed who confirms, he obtained the indocin and will p/u olmesartan today. Patient to f/u PRN. ----- Message from [facility] sent at 01/06/2025 4:02 PM EST ----- Hi! Just a heads up. I attempted to contact patient to let him know that I ordered a follow-up CT scan for his history of lung nodule as well as a dedicated CT of his adrenal gland. There was an incidental finding of an adrenal mass (this is typically benign). He should expect a phone call to schedule imaging. No answer. Left voicemail requesting callback. If patient calls back please advise of CT scans and that I will contact patient once I receive results. Thank you! documented in this encounter Plan of Treatment Upcoming Encounters Date Type Department Care Team (Late st Contact Info) Description 03/24/2025 2:00 PM EDT Office Visit [facility] [address] [place] [address] Bernice Lugo FNP [address] [place] [address] documented as of this encounter Visit Diagnoses Not on filedocumented in this encounter Additional Health Concerns Assessment Noted Time PHQ-9 Depression Total Score: 0 01/03/20 25 2:41 PM EST documented as of this encounter Care Teams Director Mobile Relationship Specialty Start Date End Date Bernice Lugo FNP [address] [place] [address] PCP - General Family Medicine 04/19/22 documented as of this encounter
--- OUTSIDE RECORDS SUMMARY | 2025-01-28 06:02 | XMS_ITS | Encounter Summary ---
Author Organization [employer] Address [address] [facility] [address] [place] [address] Care Team Providers Care Foreign Languages Department Chair Name Role Phone Bernice Lugo [facility] Primary Care Provider [phone] Encounter Details Date Type Department Care Team (Latest Contact Info) Description 01/03/2025 Travel Social History Tobacco Use Types Packs/Day Years [...] AM EDT documented as of this encounter Plan of Treatment Upcoming Encounters Date Type Department Care Team (Late st Contact Info) Description 03/24/2025 2:00 PM EDT Office Visit [facility] [address] [place] [address] Bernice Lugo FNP [address] [place] [address] documented as of this encounter Visit Diagnoses Not on filedocumented in this encounter Additional Health Concerns Assessment Noted Time PHQ-9 Depression Total Score: 0 01/03/20 25 2:41 PM EST documented as of this encounter Care Teams Foreign Languages Department Chair Relationship Specialty Start Date End Date Bernice Lugo FNP [address] [place] [id number] PCP - General Family Medicine 04/19/22 documented as of this encounter
--- OUTSIDE RECORDS SUMMARY | 2025-01-28 06:02 | XMS_ITS | Encounter Summary ---
Author Organization [employer] Address [address] 7[address] [place] [address] Care Team Providers Care Turkey Egg Gatherer Name Role Phone [facility] Primary Care Provider [phone] Reason for Visit * Reason Comments Med Refill Encounter Details Date Type Department Care Team (Late st Contact Info) Description 05/24/2024 Refill [facility] [address] [place], [place] [phone] [facility] [address] [place] [address] Gout, unspecified Social History Tobacco Use Types Packs/Day Years Used Date Smoking Tobacco: Never Smokeless Tobacco: Never Alcohol Use Standard Drinks/Week Comments Never 0 (1 standard drink = 0.6 oz pur e alcohol) Depression Answer Date Recorded Patient Health Questionnaire-9 Score 0 06/13/2023 Housing Stability Answer Date Recorded What is your housing situation today? I have rosy antoine 08/30/[address] you li ve. Do you have problems with any of the following? None of the above 08/30/2023 Food Insecurity Answer Date Recorded Within the past 12 months, y ou worried that your food would run out before you got money to buy more: Never True 08/30/2023 Within the past 12 months,th e food you bought just didn't last and you didn't have enough money to get more: Never True Transportation Answer Date Recorded In the past 12 months, has l ack of transportation kept you from medical appts, meetings, work or from getting things needed for daily living? No 08/30/2023 Utilities Answer Date Recorded In the past 12 months, has t he electric, gas, oil or water company threatened to shut off services in your home? No 08/30/2023 Depression Answer Date Recorded Patient Health Questionnaire-2 Score 0 06/13/2023 Sex and Gender Information Value Date Recorded [...] Description 03/24/2025 2:00 PM EDT Office Visit [facility] [address] [place] [address] Bernice Lugo FNP [address] [place] [address] documented as of this encounter Visit Diagnoses Diagnosis Gout, unspecified documented in this encounter Additional Health Concerns Assessment Noted Time PHQ-9 Depression Total Score: 0 06/13/20 23 10:28 AM EDT documented as of this encounter Care Teams Turkey Egg Gatherer Relationship Specialty Start Date End Date Bernice Lugo FNP [address] [place] [address] PCP - General Family Medicine 04/19/22 documented as of this encounter
--- OUTSIDE RECORDS SUMMARY | 2025-01-28 06:02 | XMS_ITS | Encounter Summary ---
Author Organization [employer] Address [address] [facility] 7t [place] [address] Care Team Providers Care Enterprise Resource Planner Name Role Phone Bernice Lugo [facility] Primary Care Provider [phone] Reason for Visit * Reason Onset Date Comments Inactive Medication 03/22/2023 Encounter Details Date Type Department Care Team ([facility] st Contact Info) Description 03/22/2023 Telephone [facility] [address] [place] [address] [facility] [address] [place] [address] Inactive Medication Social History Tobacco Use Types Packs/Day Years [...] encounter Miscellaneous Notes * Telephone Encounter - Connie Bender RN - 03/23/2023 10:59 AM EDT TC X1 to pt regarding message below. LVM to return call to nurses. * Telephone Encounter - Kira Zepeda - 03/22/2023 9:15 AM EDT Tc from patient requesting an inactive medication allopurinol 100 mg. documented in this encounter Plan of Treatment Upcoming Encounters Date Type Department Care Team (Late st Contact Info) Description 03/24/2025 2:00 PM EDT Office Visit [facility] [address] [place] [address] Bernice Lugo FNP [address] [place] [address] documented as of this encounter Visit Diagnoses Not on filedocumented in this encounter Care Teams Enterprise Resource Planner Relationship Specialty Start Date End Date Bernice Lugo FNP [address] [place] [address] PCP - General Family Medicine 04/19/22 documented as of this encounter
[2025-01-28 07:34] LABS: Estimated Average Glucose 108 mg/dL; Hemoglobin A1C 140.1993 umol/L; Hemoglobin A1c % 5.4 % (<6.0)
[2025-01-28 07:51] LABS: Alanine Aminotransferase 45 U/L (0-40); Albumin Level 4.4 g/dL (3.5-5.0); Alkaline Phosphatase 40 U/L (39-117); Anion Gap 10 (12-20); Aspartate Amino Transferase 23 U/L (5-37); Bilirubin Total 0.6 mg/dL (0.0-1.0); Blood Urea Nitrogen 25 mg/dL (9-16); Calcium 9.3 mg/dL (8.4-10.2); Carbon Dioxide 25 mmol/L (22-29); Chloride 109 mmol/L (96-108); Cholesterol 147 mg/dL (<200); Estimated Glomerular Filt Rate > 60; Glucose Random 95 mg/dL (60-115); HDL Cholesterol 32 mg/dL (>40); LDL Cholesterol Calculated 93 mg/dL (<100); Potassium 4.1 mmol/L (3.3-5.1); Sodium 140 mmol/L (135-145); Total Protein 7.3 g/dL (6.5-8.0); Triglycerides 112 mg/dL (<150)
[2025-01-28 08:31] LABS: Prostate Specific Antigen 0.38 ng/mL (<0.05-4.0)
== END 2025-01-28 06:00 | disposition home or self-care (01) ==
LOC: HO.XRAY 05:59
PROVIDERS: PCP Registered Nurse; Visit Provider Registered Nurse
DX: M10.9 Gout, unspecified (principal); I10 Essential (primary) hypertension; E66.813 Obesity, class 3; Z68.43 Body mass index [BMI] 50.0-59.9, adult; E66.01 Morbid (severe) obesity due to excess calories; Z80.42 Family history of malignant neoplasm of prostate; Z12.5 Encounter for screening for malignant neoplasm of prostate; Z13.1 Encounter for screening for diabetes mellitus
CPT/HCPCS: 36415; 80053; 80061; 83036; 84153

== ENCOUNTER 2025-03-05 14:58 | Outpatient (REF) | payer OTHER, SELFPAY ==
--- NOTE | ~2025-03-05 | CT_ITS ---
CLINICAL HISTORY: Follow-up pulmonary nodule CT chest without contrast Comparison: CT/MO/SR - CT CHEST WO CON - 06/13/22 17:22 EDT Findings: The heart size is normal. The visualized thyroid and mediastinum are unremarkable. Calcified right upper lobe granuloma unchanged. Left lower lobe perifissural nodule is also unchanged. No new nodules are noted. Right adrenal adenoma is unchanged. Largely benign fatty adjacent right adrenal nodule is larger than previously noted now measuring approximately 3.5 cm in greatest diameter. It was poorly seen on the prior exam where measured approximately 2.6 cm in greatest diameter. The bones are intact. IMPRESSION: 1. Calcified granuloma right upper lobe and left lower lobe perifissural nodule unchanged. No further follow-up is necessary. 2. 2 right adrenal nodules both of which contain fat. The more superior lesion may represent an adenoma or myelolipoma and the 2nd lesion is almost entirely fatty and benign also a likely myelolipoma. It is larger than previously noted but was poorly seen on the prior exam. This document has been electronically signed by: Leonel Guerrero MD on 03/06/2025 10:46:31
--- NOTE | ~2025-03-05 | CT_ITS ---
CLINICAL HISTORY: Further evaluation of incidental adrenal mass noted on prior chest CT --- Additiona l Notes or Special Instructions: ADRENAL MEASUREMENT <10, PROTOCOL IS TO NOT CONTINUE WITH IV CONTRAS T- CHAND IMAGES WERE SAVED CT abdomen without contrast Comparison: None Findings: The lung bases are clear. There is a heterogeneous thin-walled fat containing right adrenal 3.4 x 2.8 cm mass, possible myelolipoma. There is a 2nd right adrenal 4.1 x 2.8 cm fat containing mass, possible adenoma. The gallbladder and solid organs are otherwise within normal limits. There is a punctate left renal parenchymal calculus No bowel obstruction, pneumoperitoneum, or pneumatosis. No acute fracture. IMPRESSION: Two separate right adrenal masses, possible myelolipoma and adenoma. This document has been electronically signed by: Brant Guevara MD on 03/07/2025 08:17:25
--- OUTSIDE RECORDS SUMMARY | 2025-03-05 16:03 | XMS_ITS | Encounter Summary ---
Author Organization [employer] Address [address] [facility] 7t [place] [address] Care Team Providers Care Mold Burner Name Role Phone Bernice Lugo [facility] Primary Care Provider [phone] Reason for Visit * Reason Onset Date Comments Med Refill 03/22/2023 Encounter Details Date Type Department Care Team ([facility] st Contact Info) Description 03/22/2023 Telephone [facility] [address] [place] [address] Bernice Lugo [facility] [address] [place] [address] Med Refill Social History Tobacco Use Types [...] Description 03/24/2025 2:00 PM EDT Office Visit [facility] [address] [place] [address] Bernice Lugo FNP [address] [place] [address] documented as of this encounter Visit Diagnoses Not on filedocumented in this encounter Care Teams Mold Burner Relationship Specialty Start Date End Date Bernice Lugo FNP [address] [place] [address] PCP - General Family Medicine 04/19/22 documented as of this encounter
--- OUTSIDE RECORDS SUMMARY | 2025-03-05 16:03 | XMS_ITS | Encounter Summary ---
Author Organization [email or web address] Address [address] [place] [address] Care Team Providers Care Clinical Exercise Physiologist Name Role Phone [facility] Primary Care Provider [phone] Reason for Visit * Reason Comments Med Refill Encounter Details Date Type Department Care Team (Late st Contact Info) Description 05/24/[address] [facility] [address] [place] [address] [facility] [address] [place] [address] Gout, unspecified Social History Tobacco Use Types [...] 2:00 PM EDT Office Visit [facility] [address] [place] [address] Bernice Lugo FNP [address] [place] [address] documented as of this encounter Visit Diagnoses Diagnosis Gout, unspecified documented in this encounter Additional Health Concerns Assessment Noted Time PHQ-9 Depression Total Score: 0 06/13/20 23 10:28 AM EDT documented as of this encounter Care Teams Clinical Exercise Physiologist Relationship Specialty Start Date End Date Bernice Lugo FNP [address] [place] [address] PCP - General Family Medicine 04/19/22 documented as of this encounter
--- OUTSIDE RECORDS SUMMARY | 2025-03-05 16:03 | XMS_ITS | Clinical Summary ---
Author Organization [employer] Address [address] [facility] 7t [place] [address] Care Team Providers Care Broth Setter Name Role Phone Bernice Lugo [facility] Primary Care Provider [phone] Allergies No known active allergies Medications albuterol 108 (90 Base) MCG/ACT inhaler Inhale 2 puffs every 4 (four) hours. 2 Active allopurinol (Zyloprim) 300 MG tablet take 1 tablet by oral route every day. Take with 100 mg pill (total of 400 mg) 1 Active amLODIPine (Norvasc) 5 MG tabletIndications :Primary hypertension Take 1 tablet (5 mg) by mouth in the morning. 30 tablet 11 3 Active indomethacin (Indocin) 50 MG capsuleIndication s:Acute idiopathic gout of left foot TAKE 1 CAPSULE BY MOUTH TWICE DAILY NEEDED FOR GOUT 28 capsule 1 5 Active olmesartan (Benicar) 20 MG tabletIndications :Essential hypertension Take 1 tablet (20 mg) by mouth Once per day. 30 tablet 11 5 01/03/20 26 Active Active Problems Problem Noted Date Diagnosed Date Class 3 severe obesity due t o excess calories with serious comorbidity and body mass index (BMI) of 50.0 to 59.9 in adult 09/23/2023 Assessment & Plan (09/23/2023 3:34 PM EST): ?? Accepts nutrition referral Dyslipidemia 06/09/2023 Essential hypertension 06/09/2023 Overview (09/23/2023): ?? Olmesartan 20mg ?? Amlodipine 5mg ?? Home sleep study ordered-suspected sleep apnea 04/2022 Maintenance: BMP: 07/2023 Lipid Panel: 07/2023 EK06/2023- sinus bradycardia. Possible conduction delay. Followed by cardiology - Aerobic exercise to reduce BP. Initial goal of 30 min walk 3-5x/week. Increase as tolerated. - low-sodium diet (goal: <2g/day) and heart healthy diet such as DASH to reduce BP and prevent ASCVD. - Home BP monitoring 1-2 x day with goal of <140/90. - Seek immediate medical attention for chest pain, palpitations, SOB, syncope, or sudden changes in mental status. - Do not change or discontinue current prescriptions without first consulting health care provider Assessment & Plan (09/23/2023 3:33 PM EST): ?? Well controlled ?? Continue current regimen ?? Will request sleep study results and follow up as needed based on report. Assessment & Plan (06/15/2023 2:07 PM EDT): ?? START amlodipine 5mg daily ?? 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 On allopurinol ?? Indomethacin PRN Resolved Problems Problem Noted Date Diagnosed Date Resolved Date Prehypertension 05/07/2018 06/15/2023 Encounters Date Type Department Care Team Description 01/31/[address] [facility] [address] [facility] [place] [address] Bernice Lugo FNP stable lab letter 01/07/[address] [facility] [address] [place] [address] Bernice Lugo FNP Care Coordination 01/03/2025 2:30 PM EST Office Visit [facility] [address] [place] [phone] Bernice Lugo FNP Essential hypertension (Primary Dx); Acute idiopathic gout of left foot; Lung nodule, solitary; Adrenal incidentaloma (CMS/HCC); Class 3 severe obesity due to excess calories with serious comorbidity and body mass index (BMI) of 50.0 to 59.9 in adult (CMS/HCC); Dietary counseling; Exercise counseling; Family history of prostate cancer 01/03/2025 Travel 12/20/[address] [facility] [address] [place], [place] [phone] [place]anaBernice FNP Pre-visit Planning (Pre-visit planning - LVM ) from Last 3 Months Family History Medical History Relation Name Comments Heart attack Brother Prostate cancer Brother Relation Name Status Comments Brother Social History Tobacco Use Types Packs/Day Years [...] not to disclose 2021 10:34 AM EDT Last Filed Vital Signs Vital Sign Reading [...] Mass Index 52.78 01/03/2025 2:35 PM EST Plan of Treatment Upcoming Encounters Date Type Department Care Team (Late st Contact Info) Description 03/24/2025 2:00 PM EDT Office Visit [facility] [address] [place] [address] [facility] [address] [place] [address] Health Maintenance Due Date Last Done Comments CT Colonography 1980 Colonoscopy 1980 Colorectal Cancer Screening 1980 FIT DNA/Cologuard 1980 FIT 1980 FOBT 1980 Sigmoidoscopy 1980 Alcohol/Substance Use Screening 1992 Family Planning (PISQ) 1995 Hepatitis B Vaccines (1 of 3 - 19+ 3-dose series) 1999 COVID-19 Vaccine (2023-2 5 season) 2024 12/16/2021, 02/10/2021 Influenza Vaccine (#1) 2024 11/01/2021 Depression Screening 01/03/2026 01/03/2025, 01/03/2025 SDOH Screening 01/03/2026 01/03/2025 Tobacco Screening 01/05/2026 01/05/2025 Zoster Vaccines (1 of 2) 2030 Lipid Panel 01/28/2030 01/28/2025, 06/29/2023, 07/08/2020 DTaP/Tdap/Td Vaccines (2 - T d or Tdap) 06/01/2032 06/01/2022 RSV Patients and Patients Aged 60 years or older (1 - 1-dose 75+ series) 2055 HIV Screening Completed 08/11/2022, 07/08/2020 Hepatitis C Screening Completed 08/11/2022 , 07/08/2020 HIB Vaccines Aged Out No longer eligi ble based on patient's age to complete this topic HPV Vaccines Aged Out No longer eligi ble based on patient's age to complete this topic Hepatitis A Vaccines Aged Out No long er eligible based on patient's age to complete this topic IPV Vaccines Aged Out No longer eligi ble based on patient's age to complete this topic Meningococcal Vaccine Aged Out No bear nahum eligible based on patient's age to complete this topic Pneumococcal Vaccine: Pediatrics (0 to 5 Years) and At-Risk Patients (6 to 49) Years) Aged Out No longer eligible b ased on patient's age to complete this topic RSV under 20 months Aged Out No longe r eligible based on patient's age to complete this topic Rotavirus Vaccines Aged Out No longer eligible based on patient's age to complete this topic Procedures Procedure Name Priority Date/Time Associated Diagnosis Comments PSA, TOTAL Routine 01/28/2025 6:33 AM EDT Family history of prostate cancer HEMOGLOBIN A1C Routine 01/28/2025 6:33 AM EDT Class 3 severe obesity due to excess calories with serious comorbidity and body mass index (BMI) of 50.0 to 59.9 in adult (CMS/HCC) LIPID PANEL, STANDARD Routine 01/28/2025 6:33 AM EDT Essential hypertension COMPREHENSIVE METABOLIC PANEL Routine 01/28/2025 6:33 AM EDT Essential hypertension ZZZ HISTORICAL HEPATITIS C AB W/REFL TO HCV RNA, QN, PCR Routine 08/11/2022 3:51 PM EDT HIV 1/2 ANTIGEN/ANTIBODY, FOURTH GENERATION W/RFL Routine 08/11/2022 3:51 PM EDT from Last 3 Months or Most Recently Relevant to Health Maintenance Results * PSA,Total (01/28/2025 6:33 AM EDT) Prostate Specific Antigen 0.38 <0.05 - 4.0 ng/mL [facility] Comment:PSA methodology: Mckinley burton Alisarath i ChemiluminescentMicroparticle Immunoassay (CMIA) Blood Venous blood specimen / Unknown 01/28/2025 6:33 AM EDT 01/28/2025 6:33 AM EDT [facility] LAB BLOOD ORDERABLES Final Re sult [facility] [address] [place] [phone] * Hemoglobin A1c (01/28/2025 6:33 AM EDT) Hemoglobin A1c 5.4 <6.0 % [facility] Comment:Hemoglobin A1C Refer ence Range Adults: 4.8 - 6.0 % Non diabetic: < 6.0 % Goal: < 7.0 %Additional Action Suggested: > 8.0 %Note: Hemoglobin A1c results are invalid for patients with abnormal amounts of HbF. Blood transfusions may impact the HbA1c concentration in the patient sample. Estimated Average Glucose 108 mg/dL [facility] Comment:eAG = Estimated ave rage glucose which is %A1C expressed asaverage glucose, using the formula of the F5Q-BjnjvexSxnsuan Glucose study (ADAG), Diabetes Care, Vol.31,#8,2007 Blood Venous blood specimen / Unknown 01/28/2025 6:33 AM EDT 01/28/2025 6:33 AM EDT [facility] LAB BLOOD ORDERABLES Final Re sult Performing Organization Address [facility] Co de Phone Number [facility] [address] [place] [address] [phone] * (ABNORMAL) Lipid Panel, Standard (01/28/2025 6:33 AM EDT) Triglycerides 112 <150 mg/dL [facility] Comment:Desirable Triglyceri de: less than 150 mg/dLBorderline High Triglyceride 150-199 mg/dLHigh Triglyceride: 200-499 mg/dLVery High Triglyceride: greater than or equal to 5OO mg/dL Cholesterol 147 <200 mg/dL [facility] Comment:Desirable Cholestero l: less than 200 mg/dLBorderline High Cholesterol: 200-239 mg/dLHigh Cholesterol: greater than 239 mg/dL LDL Cholesterol Calculated 93 <100 mg/dL [facility] Comment:Desirable LDL: less than 100 mg/dLNear Optimal/Above Optimal LDL: 110- 129 mg/dLBorderline High LDL: 130-159 mg/dLHigh LDL: 160-189 mg/dLVery High LDL: greater than or equal to 190 mg/dL HDL Cholesterol 32(L) >40 mg/dL [facility] Comment:Desirable HDL: great er than 40 mg/dL Note: This HDL assay may give artificially low results in patients with liver disease. Blood Venous blood specimen / Unknown 01/28/2025 6:33 AM EDT 01/28/2025 6:33 AM EDT [facility] BLOOD ORDERABLES Final Re sult Performing Organization Address [facility]/ZIP Co de Phone Number [facility] [address] [place] [address] [phone] * (ABNORMAL) Comprehensive Metabolic Panel (01/28/2025 6:33 AM EDT) Sodium 140 135 - 145 mmol/L [facility] Potassium 4.1 3.3 - 5.1 mmol/L [facility] Chloride 109(H) 96 - 108 mmol/L [facility] Carbon Dioxide 25 22 - 29 mmol/L [facility] Anion Gap 10(L) 12 - 20 [facility] Urea Nitrogen (BUN) 25(H) 9 - 16 mg/dL [facility] Creatinine, Serum 0.83 0.5 - 1.4 mg/dL [facility] Estimated Glomerular Filt Rate >60 [facility] Comment:Chronic Kidney Disea se: Estimated GFR < 60 mL/min/[id number] Kidney Disease: Estimated GFR < 15 mL/min/1.73m2 Glucose 95 60 - 115 mg/dL [facility] Calcium 9.3 8.4 - 10.2 mg/dL [facility] Bilirubin, Total 0.6 0.0 - 1.0 mg/dL [facility] Aspartate Amino Transferase 23 5 - 37 U/L [facility] Alanine Aminotransferase 45(H) 0 - 40 U/L [facility] Total Protein 7.3 6.5 - 8.0 g/dL [facility] Albumin Level 4.4 3.5 - 5.0 g/dL [facility] Alkaline Phosphatase 40 39 - 117 U/L [facility] Blood Venous blood specimen / Unknown 01/28/2025 6:33 AM EDT 01/28/2025 6:33 AM EDT [facility] BLOOD ORDERABLES Final Re sult [facility] [address] [place] [address] [phone] * HEPATITIS C AB W/REFL TO HCV RNA, QN, PCR (08/11/2022 3:51 PM EDT) HEPATITIS C ANTIBODY NON-REACTI VE NON-REACT [facility] INDEX 0.07 <1.00 [facility] Comment: ?? HCV antibody was non-reactive. There is no laboratory ?? evidence of HCV infection. ?? In most cases, no further action is required. However, if recent HCV exposure is suspected, a test for HCV RNA (test code 54832) is suggested. ?? For additional information please refer to http://TCM Bertha.[employer] Software/faq/FEH85b8 (This link is being provided for informational/ educational purposes only.) ?? 08/11/2022 3:51 PM EDT [facility] CATALYST PLANT SUPERVISOR HISTORICAL/NON ORDERABLE LABS Final Result Performing Organization Address City/[facility]/ZIP Co de Phone Number [facility] * HIV 1/2 ANTIGEN/ANTIBODY,FOURTH GENERATION W/RFL (08/11/2022 3:51 PM EDT) HIV-1/2 ANTIGEN AND ANTIBODIES, 4TH GENERATION W/ REFLEX NON-REACT MARY NON-REACT [facility] Comment: HIV-1 antigen and HIV-1/HIV-2 antibodies were not detected. There is no laboratory evidence of HIV infection. ?? PLEASE NOTE: This information has been disclosed to you from records whose confidentiality may be protected by state law. ??If your state requires such protection, then the state law prohibits you from making any further disclosure of the information without the specific written consent of the person to whom it pertains, or as otherwise permitted by law. A general authorization for the release of medical or other information is NOT sufficient for this purpose. ? For additional information please refer to http://TCM Bertha.Soocial.IntelliFlo/faq/DZQ392 (This link is being provided for informational/ educational purposes only.) ? The performance of this assay has not been clinically validated in patients less than 2 years old. ?? 08/11/2022 3:51 PM EDT [facility] BLOOD ORDERABLES Final Re sult Performing Organization Address City/[facility]/ZIP Co de Phone Number [facility] from Last 3 Months or Most Recently Relevant to Health Maintenance Insurance [facility] , [address] [place] [address] Care Teams Broth Setter Relationship Specialty Start Date End Date Bernice Lugo FNP [address] [place] [address] PCP - General Family Medicine 04/19/22
--- OUTSIDE RECORDS SUMMARY | 2025-03-05 16:03 | XMS_ITS | Encounter Summary ---
Author Organization [employer] Address [address] [facility] 7t [place] [address] Care Team Providers Care Tax Senior Associate Name Role Phone Bernice Lugo [facility] Primary Care Provider [phone] Reason for Visit * Reason Onset Date Comments Inactive Medication 03/22/2023 Encounter Details Date Type Department Care Team ([facility] st Contact Info) Description 03/22/2023 Telephone [facility] [address] [place] [address] [facility] [address] [place] [address] Inactive Medication Social History Tobacco Use Types [...] Description 03/24/2025 2:00 PM EDT Office Visit [facility] [address] [place] [address] Bernice Lugo FNP [address] [place] [address] documented as of this encounter Visit Diagnoses Not on filedocumented in this encounter Care Teams Tax Senior Associate Relationship Specialty Start Date End Date Bernice Lugo FNP [address] [place] [phone] PCP - General Family Medicine 04/19/22 documented as of this encounter
== END 2025-03-05 14:59 | disposition home or self-care (01) ==
LOC: HO.CT 14:58
PROVIDERS: PCP Registered Nurse; Visit Provider Registered Nurse
DX: R91.1 Solitary pulmonary nodule (principal); E27.8 Other specified disorders of adrenal gland
CPT/HCPCS: 71250; 74150

== ENCOUNTER → 2025-03-05 15:05 | Outpatient (BNV) | payer OTHER, SELFPAY | PROVIDERS: PCP Registered Nurse; Visit Provider Radiology Diagnostic Radiology | DX: E27.8 Other specified disorders of adrenal gland (principal) | CPT/HCPCS: 74150 ==